=== PATIENT | female | born 1960 | race Caucasian/White ===

== ENCOUNTER 2024-03-26 00:14 | Inpatient (IN) | payer OTHER ==
[~2024-03-26] VITALS: Ht 160 cm; Wt 117.9 kg
[2024-03-26 00:36] VITALS: BP 164/81
[2024-03-26] MEDS ORDERED: HYDRALAZINE HYD50 MG PO (01:34)
[2024-03-26] MEDS ORDERED: TRULICITY1.5 MG/0.5 SC (01:34)
[2024-03-26] MEDS ORDERED: SODIUM CHLORIDE 0.9% 1,000 ML IV ONE ×2 (01:35→05:35)
[2024-03-26] MEDS ORDERED: GABAPENTIN100 M2 PO (01:35)
[2024-03-26] MEDS ORDERED: ATORVASTATIN CA80 M1 PO (01:35)
[2024-03-26] MEDS ORDERED: HYDROCHLOROTHIA25 M1 PO (01:36)
[2024-03-26] MEDS ORDERED: DILTIAZEM 24HR300 MG PO (01:36)
[2024-03-26] MEDS ORDERED: DICYCLOMINE HYD10 MG PO (01:36)
[2024-03-26] MEDS ORDERED: OMEPRAZOLE MAGN20 MG PO (01:37)
[2024-03-26] MEDS ORDERED: Levemir FlexPen 100 SC (01:37)
[2024-03-26] MEDS ORDERED: LEVOTHYROXINE150 MCG PO (01:37)
[2024-03-26] MEDS ORDERED: ONDANSETRON HYDR8 MG PO (01:38)
[2024-03-26] MEDS ORDERED: METFORMIN XR500 MG PO (01:38)
[2024-03-26] MEDS ORDERED: VALSARTAN320 MG PO (01:39)
[2024-03-26] MEDS ORDERED: METFORMIN HCL500 M2 PO (01:40)
[2024-03-26 01:50] LABS: BASO # 0.1 10*3/uL (0.0-0.1); EOS # 0.1 10*3/uL (0.0-0.4); EOS % 1.4 % (1.0-4.0); HEMATOCRIT 35.4 % (37.0-47.0); LYMPH # 1.3 10*3/uL (1.3-4.4); LYMPH % 15.4 % (27.0-41.0); MEAN CELL VOLUME 89.2 fl (81.0-99.0); MEAN CORPUSCULAR HGB CONC 32.5 g/dl (33.0-37.0); MEAN PLATELET VOLUME 9.2 fl (9.6-12.3); MONO # 0.7 10*3/uL (0.1-1.0); PLATELET COUNT AUTOMATED 336 10*3/uL (130-400); RED BLOOD COUNT 3.97 10*6/uL (4.10-5.10); WHITE BLOOD COUNT 8.1 10*3/uL (4.8-10.8)
[2024-03-26] MEDS ORDERED: IOHEXOL 300 MG/ML 100 ML VIAL IV ONE (01:55)
[2024-03-26 02:11] LABS: ALKALINE PHOSPHATASE 92 U/L (46-116); BUN 18 mg/dl (9-23); CHLORIDE 103 mmol/L (98-107); ETHYL ALCOHOL 3.1 mg/dl (<3); LIPASE 53 U/L (12-53); POTASSIUM 4.4 mmol/L (3.4-5.1); SGPT/ALT 22 U/L (5-49); TOTAL PROTEIN 6.7 gm/dL (6.0-8.0)
[2024-03-26 02:13] LABS: BILIRUBIN Negative (Negative); BLOOD Negative (Negative); CLARITY Clear (Clear); COLOR Yellow (Yellow); GLUCOSE Negative (Negative); KETONE Negative (Negative); LEUKO ESTERASE Trace (Negative); NITRITE Negative (Negative); UROBILINOGEN 0.2 E.U./dl (0.0-1.0)
[2024-03-26 02:20] LABS: URINE AMPHETAMINES Negative (1000ng/ml); URINE BARBITURATES Negative (200ng/ml); URINE BENZODIAZEPINES Negative (200ng/ml); URINE CANNABINOIDS (THC) Negative (50ng/ml); URINE COCAINE Negative (300ng/ml); URINE METHADONE Negative (300ng/ml); URINE OPIATES Negative (300ng/ml); URINE PHENCYCLIDINE Negative (25ng/ml)
[2024-03-26 04:30] VITALS: BP 168/68
[2024-03-26 08:00] VITALS: BP 156/77
[2024-03-26] MEDS ORDERED: Ondansetron Hydrochloride 4 MG/2 ML VIAL IV PRN (10:30)
[2024-03-26] MEDS ORDERED: MORPHINE Sulfate 2 MG/ML SYR IV PRN (10:30)
[2024-03-26] MEDS ORDERED: SODIUM CHLORIDE 0.9% 1,000 ML IV SCH (10:45)
[2024-03-26] MEDS ORDERED: DEXTROSE 10 % IN WATER 250 ML IV PRN (11:30)
[2024-03-26 12:00] VITALS: BP 146/65
[2024-03-26] MEDS ORDERED: INSULIN LISPRO 1 UNIT/0.01 ML SQ SCH (12:00)
[2024-03-26 17:55] VITALS: BP 145/41
[2024-03-26 23:00] VITALS: BP 177/71
[2024-03-26] MEDS ORDERED: hydrALAZINE hydrochloride 20 MG/ML VIAL IV ONE (23:00)
[2024-03-27 00:12] VITALS: BP 162/55
[2024-03-27 00:39] VITALS: BP 147/36
[2024-03-27 05:59] LABS: BASO # 0.1 10*3/uL (0.0-0.1); BASO % 1.2 % (0.0-1.0); EOS # 0.1 10*3/uL (0.0-0.4); EOS % 2.4 % (1.0-4.0); HEMATOCRIT 35.9 % (37.0-47.0); LYMPH # 1.1 10*3/uL (1.3-4.4); LYMPH % 18.5 % (27.0-41.0); MEAN CELL VOLUME 90.4 fl (81.0-99.0); MEAN CORPUSCULAR HGB 28.5 pg (27.0-31.0); MEAN CORPUSCULAR HGB CONC 31.5 g/dl (33.0-37.0); MEAN PLATELET VOLUME 9.2 fl (9.6-12.3); MONO # 0.7 10*3/uL (0.1-1.0); MONO % 11.3 % (3.0-9.0); NEUT % 66.3 % (47.0-73.0); PLATELET COUNT AUTOMATED 317 10*3/uL (130-400); RED BLOOD COUNT 3.97 10*6/uL (4.10-5.10); RED CELL DISTRI WIDTH 13.2 % (0-14.5)
[2024-03-27 08:03] LABS: ALKALINE PHOSPHATASE 94 U/L (46-116); BUN 10 mg/dl (9-23); CHLORIDE 105 mmol/L (98-107); CHOLESTEROL 207 mg/dL (<200); FREE T4 1.07 ng/dl (0.89-1.76); LDL CHOLESTEROL 131 mg/dL (9-159); POTASSIUM 3.6 mmol/L (3.4-5.1); SGPT/ALT 18 U/L (5-49); TOTAL PROTEIN 6.5 gm/dL (6.0-8.0); TRIGLYCERIDES 172 mg/dl (<150)
[2024-03-27 13:50] VITALS: BP 198/68
[2024-03-27] MEDS ORDERED: hydrALAZINE hydrochloride 20 MG/ML VIAL IV ONE (14:35)
[2024-03-27 15:49] VITALS: BP 170/72
[2024-03-27] MEDS ORDERED: hydrALAZINE hydrochloride 50 MG TAB PO SCH (16:20)
[2024-03-27 16:51] VITALS: BP 128/89
[2024-03-27 20:00] VITALS: BP 164/62
[2024-03-27] MEDS ORDERED: GABAPENTIN 100 MG CAP PO SCH (22:00)
[2024-03-27] MEDS ORDERED: ATORVASTATIN CALCIUM 80 MG TAB PO SCH (22:00)
[2024-03-28] VITALS: BP 190/61
[2024-03-28] MEDS ORDERED: hydrOXYzine pamoate 25 MG CAP PO ONE (00:45)
[2024-03-28] MEDS ORDERED: Levothyroxine Sodium 150 MCG TAB PO SCH (06:00)
[2024-03-28] MEDS ORDERED: OMEPRAZOLE 20 MG CAP PO SCH (07:30)
[2024-03-28 08:00] VITALS: BP 165/55
[2024-03-28] MEDS ORDERED: HYDROCHLOROTHIAZIDE 25 MG TAB PO SCH (10:00)
[2024-03-28] MEDS ORDERED: Losartan Potassium 100 MG TABLET PO SCH (10:00)
[2024-03-28] MEDS ORDERED: Insulin Glargine, Recombinan 1 UNIT/0.01 ML SC SCH (10:00)
[2024-03-28] MEDS ORDERED: DILTIAZEM CD 300 MG CAP PO SCH (10:00)
== END 2024-03-28 13:01 | disposition home or self-care (01) | DRG 247 ==
LOC: ED 00:14 → EDHOLD 06:08 → 4E 06:08
PROVIDERS: Internal Medicine; Registered Nurse; ADMIT Student in an Organized Health Care Education/Training Program; ATTEND Student in an Organized Health Care Education/Training Program
PROC: 0D9670Z Drainage of Stomach with Drainage Device, Via Natural or Artificial Opening (ICD-10-PCS; principal; 2024-03-27)
DX: K56.609 Unspecified intestinal obstruction, unspecified as to partial versus complete obstruction (principal); E44.1 Mild protein-calorie malnutrition; G62.9 Polyneuropathy, unspecified; E05.00 Thyrotoxicosis with diffuse goiter without thyrotoxic crisis or storm; E78.5 Hyperlipidemia, unspecified; Z88.8 Allergy status to other drugs, medicaments and biological substances; Z85.038 Personal history of other malignant neoplasm of large intestine; Z93.3 Colostomy status; Z83.6 Family history of other diseases of the respiratory system; Z68.42 Body mass index [BMI] 45.0-49.9, adult